=== PATIENT | female | born 1955 | race Caucasian/White ===

== ENCOUNTER 2019-01-29 14:21 | Outpatient (CLI) | payer BC ==
--- NOTE | 2019-01-29 15:13 | ULT ---
Renal sonogram HISTORY: Recurrent urinary tract infections findings: Right kidney is 10.3 cm length and left is 11.3 cm. Each has a normal sonographic appearance without evidence of mass, stone, or hydronephrosis. Urinary bladder is decompressed and not well evaluated. IMPRESSION: Normal sonographic appearance of the kidneys.
== END 2019-01-29 14:22 | disposition home or self-care (01) ==
LOC: SCSULT 14:21
PROVIDERS: ATTEND Family Medicine
DX: N39.0 Urinary tract infection, site not specified (principal)
CPT/HCPCS: 76770

== ENCOUNTER 2022-04-17 10:19 | Emergency (ER) | payer BC ==
[2022-04-17 12:15] LABS: #Lymphocytes 0.4 thou/uL (1.20-3.40); #Monocytes 0.2 thou/uL (0.11-0.59); #Neutrophils 1.8 thou/uL (1.40-6.50); %Eosinophils 0.4 % (0.0-10.0); %Lymphocytes 18.2 % (21.0-51.0); %Monocytes 7.3 % (0.0-10.0); %Neutrophils 74.1 % (42.0-75.0); Hemoglobin 13.6 g/dL (12.0-16.0); Mean Corpuscular HGB CONC 34.7 g/dL (32.0-36.0); Mean Corpuscular Hemoglobin 33.4 pg (27.0-31.0); Mean Corpuscular Volume 96.1 fl (78.0-98.0); Red Blood Cell (RBC) Count 4.06 mill/uL (4.20-5.40); White Blood Cell (WBC) Count 2.4 10x3/uL (4.8-10.8)
[2022-04-17 12:37] LABS: Mean Platelet Volume 6.6 fL (7.4-10.4); Platelet Count 109 10x3/uL (130-400); Platelet Morphology Comment Appears Decreased; RBC Morphology Normal
[2022-04-17 12:46] LABS: Magnesium 1.8 mg/dL (1.6-2.6)
[2022-04-17 12:47] LABS: Lipase 44 U/L (8-78)
[2022-04-17 15:34] LABS: Bilirubin Negative (Negative); Blood, Urine Negative (Negative); Clarity Clear (Clear); Glucose, Urine (Dipstick) Normal (Negative); Ketone, Urine Negative (Negative); Leukocyte Negative Leu/uL (Negative); Nitrite Negative (Negative); Protein, Urine (Dipstick) Negative (Neg-Trace); Specific Gravity, Urine 1.006 (1.002-1.036); Urobilinogen Normal mg/dL (Less than 2); pH, Urine 7.5 (5.0-9.0)
== END 2022-04-17 15:14 | disposition home or self-care (01) ==
LOC: ERS 10:19
DX: R55 Syncope and collapse (principal); E86.0 Dehydration; D72.819 Decreased white blood cell count, unspecified
CPT/HCPCS: 36415; 70450; 71045; 75809; 81003; 83690; 83735; 84443; 84484; 85025; 93005